=== PATIENT | male | born 1970 | race African-American/Black ===

== ENCOUNTER 2024-10-29 08:51 | Emergency (ER) | payer OTHER ==
[2024-10-29] MEDS ORDERED: ONDANSETRON 4 MG/2 ML VIAL ONE (09:21)
[2024-10-29] MEDS ORDERED: NA CHLORIDE 0.9% 1,000 ML ONE (09:22)
[2024-10-29] MEDS ORDERED: MORPHINE 4 MG/ML SYR ONE (09:22)
[2024-10-29] MEDS ORDERED: FAMOTIDINE 20 MG/2 ML VIAL IV ONE (09:22)
[2024-10-29 09:25] LABS: Absolute Eosinophils 0.3 K/uL (0-0.5); Absolute Monocytes 0.7 K/uL (0.1-1.3); Absolute Neutrophil 2.4 K/uL (1.8-8.0); Basophils % 1.1 % (0-1.3); Eosinophils % 6.5 % (0-4.4); Hematocrit 34.1 % (39.6-49.0); Hemoglobin 11.6 g/dL (13.6-17.9); Lymphocytes % 21.9 % (15.3-44.8); MCH 32.8 pg (27.0-35.0); MCHC 34.1 g/dL (32.0-36.0); MCV 96.3 fL (80-100); MPV 7.7 fL (7.6-11.3); Monocytes % 16.3 % (3.3-12.3); Neutrophils % 54.2 % (41.7-73.7); Nucleated Red Blood Cells % 0.2 % (0-0); Platelets 186 thou/uL (152-406); RBC Red Blood Cell Count 3.54 M/uL (4.33-5.43); Red Cell Distribution Width 15.7 % (12.1-15.2)
[2024-10-29 09:45] LABS: AST/SGOT 28 U/L (15-37); Albumin 3.1 g/dL (3.4-5.0); Albumin/Globulin Ratio 0.5 (1.1-1.8); Alkaline Phosphatase 177 U/L (45-117); Anion Gap 8.5 mEq/L (5.0-15.0); BUN Blood Urea Nitrogen 10 mg/dL (7-18); Bicarbonate 29 mEq/L (21-32); Bilirubin Total 2.6 mg/dL (0.2-1.0); Globulin 5.7 g/dL (2.3-3.5); Glomerular Filtration Rate 68 ml/min (=/>90); Glucose Level 106 mg/dL (74-106); Lipase 32 U/L (13-75); Potassium 3.5 mEq/L (3.5-5.1); Protein, Total 8.8 g/dL (6.4-8.2); Sodium Level 139 mEq/L (136-145)
[2024-10-29 09:46] LABS: ALT/SGPT < 14 U/L (16-61)
--- NOTE | 2024-10-29 09:56 | RAD REPORT ---
EXAM: Right upper quadrant ultrasound. CLINICAL HISTORY: ABD PAIN COMPARISON: None. FINDINGS: Gallbladder: Stones and sludge. Thickened gallbladder wall measuring to 6 mm. Bile ducts: No intrahepatic or extrahepatic biliary dilatation. Common bile duct measures 4 mm. Limited imaging of the liver shows no concerning finding. Small volume of ascites. IMPRESSION: Gallbladder sludge and stones with thickened gallbladder wall could indicate cholecystitis in the cor rect clinical setting. Small volume of ascites.
[2024-10-29] MEDS ORDERED: FUROSEMIDE 20 MG/ 2ML VIAL ONE ×2 (10:24→10:56)
--- NOTE | 2024-10-29 10:41 | RAD REPORT ---
EXAM: CT CHEST, ABDOMEN AND PELVIS WITHOUT CONTRAST CLINICAL INDICATION: ABD PAIN TECHNIQUE: CT chest, abdomen and pelvis was performed without contrast, as per department protocol. A xial, sagittal and coronal reconstructions were obtained. One or more of the following dose reduction techniques were used: Automated exposure control, adjustment of the mA and/or kV according to patient size, and/or iterative reconstruction. Unless otherwise specified, incidental findings do not require dedicated imaging follow-up. Examination is limited by the lack of intravenous contrast material. COMPARISON: No prior exam. FINDINGS: LUNGS: Mild interstitial pulmonary edema likely present throughout the lung alonso. There is signific ant cardiomegaly. PLEURA: Small bilateral pleural effusions. MEDIASTINUM AND LYMPH NODES: No mediastinal mass or fluid collection. Normal size mediastinal, hilar, and axillary lymph nodes. OSSEOUS STRUCTURES AND CHEST WALL: Intact. Sternotomy wires. LIVER: Normal in size and contour. No focal lesion or biliary dilatation. PANCREAS: No mass, ductal dilation, or ирина-pancreatic fluid. SPLEEN: Normal size. No focal lesion. ADRENALS: Normal; no mass. KIDNEYS: Normal size and contour. No hydronephrosis. URINARY BLADDER: Normal contour. GASTROINTESTINAL TRACT: Mild ascites is noted. Fat-containing umbilical hernia is present, small-to-m oderate in size. No bowel obstruction is seen. No abscess present. APPENDIX: Normal appendix. LYMPH NODES: No lymphadenopathy. MUSCULOSKELETAL: Spondylosis is noted L5-S1. OTHER: Moderate atherosclerosis. IMPRESSION: Moderate CHF versus volume overload pattern. Mild ascites.
[2024-10-29 11:18] LABS: PT Prothrombin Time 16.9 SECONDS (10-13.0); Protime INR 1.51
--- NOTE | 2024-10-29 11:29 | RAD REPORT ---
EXAMINATION: ONE VIEW CHEST XR CLINICAL INDICATION: Cough;Abdominal distention TECHNIQUE: Frontal chest projection is submitted. Examination is limited by patient positioning and t echnique. COMPARISON: No prior exam. FINDINGS: Mild bilateral pulmonary edema is suspected. The cardiac silhoutte is severely enlarged in size. No d isplaced fractures identified. Multilead pacer/stimulator device. Sternotomy wires. IMPRESSION: Mild to moderate CHF versus volume overload pattern is suspected.
[2024-10-29] MEDS ORDERED: WARFARIN SODIUM 5 MG TAB ONE (11:40)
[2024-10-29 12:01] LABS: Specific Gravity 1.007 (1.005-1.030); Urine Bilirubin NEGATIVE (Negative); Urine Blood Negative (Negative); Urine Clarity Clear (Clear); Urine Color Colorless (Yellow); Urine Glucose NEGATIVE (Negative); Urine Ketones NEGATIVE (Negative); Urine Microscopic Reflex YN NO UMIC; Urine Nitrite NEGATIVE (Negative); Urine Protein NEGATIVE (Negative); Urine Urobilinogen Normal (Normal)
[2024-10-29 12:19] LABS: Troponin High Sensitivity 36.5 pg/mL (<58.9)
--- NOTE | 2024-10-29 12:23 | ER ---
Nurse's Notes [facility] Name: Jorge Curtis Age: 54 yrs Sex: Male : 1970 Arrival Date: 10/29/2024 Time: 08:51 Bed 16 Private MD: Diagnosis: Abdominal pain, Generalized;Umbilical hernia without obstruction or gangrene-reducable;Chronic combined systolic (congestive) and diastolic (congestive) heart failure;Persistent atrial fibrillation;Abnormal levels of other serum enzymes-SUBTHERAPUTIC DILANTIN LEVEL;Adverse effect of anticoagulant antagonists, vitamin K and other coagulants-SUBTHERAPUTIC INR, MECHANICAL AORTIC VALVE Presentation: 10/29 09:06 Chief complaint: Patient states: Abdominal pain for a few days, "my auntie made me ll1 come". Coronavirus screen: Client denies travel out of the [place] in the last 14 days. At this time, the client does not indicate any symptoms associated with coronavirus-19. Ebola Screen: Patient denies travel to an Ebola-affected area in the 21 days before illness onset. Initial Sepsis Screen: Does the patient meet any 2 criteria? No. Patient's initial sepsis screen is negative. Does the patient have a suspected source of infection? No. Patient's initial sepsis screen is negative. Risk Assessment: Do you want to hurt yourself or someone else? Patient reports no desire to harm self or others. Onset of symptoms was October 26, 2024. 09:06 Method Of Arrival: Ambulatory ll1 09:06 Acuity: LOUISE 3 ll1 Triage Assessment: 09:07 General: Appears uncomfortable, Behavior is calm, cooperative, appropriate for age. ll1 Pain: Complains of pain in abdomen Pain currently is 8 out of 10 on a pain scale. Quality of pain is described as aching, crampy. GI: Reports lower abdominal pain, upper abdominal pain, bloating. Historical: - Allergies: 09:05 No Known Allergies; ll1 - PMHx: 09:05 Hypertensive disorder; Diabetes mellitus; ll1 - PSHx: 09:05 defib; 4 heart surgeries; aortic valve replacement; ll1 - Immunization history:: Adult Immunizations up to date. - Infectious Disease History:: Denies. - Social history:: Smoking status: Patient denies any tobacco usage or history of. - Family history:: not pertinent. Screenin:[address] [facility] ED Fall Risk Assessment (Adult) History of falling in the last 3 months, kj2 including since admission No falls in past 3 months (0 pts) Confusion or Disorientation No (0 pts) Intoxicated or Sedated No (0 pts) Impaired Gait No (0 pts) Mobility Assist Device Used No (0 pt) Altered Elimination No (0 pt) Score/Fall Risk Level 0 - 2 = Low Risk Maintained a safe environment, Hourly rounding (assess needs \\T\\ fall precautionary measures) done. Abuse screen: Denies threats or abuse. Denies injuries from another. Nutritional screening: No deficits noted. Tuberculosis screening: No symptoms or risk factors identified. Assessment: 09:34 Reassessment: pt does not want pain medication at this time , denies pain , states he iw only feels fullness when he stands. 12:00 General: Appears in no apparent distress. Behavior is calm, cooperative. kj2 12:00 Pain: Denies pain. Neuro: Level of Consciousness is awake, alert, obeys commands, kj2 Oriented to person, place, time, situation. Cardiovascular: Patient's skin is warm and dry. Respiratory: Airway is patent Respiratory effort is unlabored. GI: No signs and/or symptoms were reported involving the gastrointestinal system. GI: Bowel sounds present X 4 quads. Abd is non tender X 4 quads. : No signs and/or symptoms were reported regarding the genitourinary system. 12:30 Reassessment: pt and family request to speak with physician prior to discharge/leaving. kj2 12:50 Reassessment: Patient appears in no apparent distress at this time. Patient and/or kj2 family updated on plan of care and expected duration. Pain level reassessed. Patient is alert, oriented x 3, equal unlabored respirations, skin warm/dry/pink. 13:47 Reassessment: Patient appears in no apparent distress at this time. Patient and/or kj2 family updated on plan of care and expected duration. Pain level reassessed. Patient is alert, oriented x 3, equal unlabored respirations, skin warm/dry/pink. Vital Signs: 09:06 Pulse 102; Resp 18; Temp 97.8; Pulse Ox 97% on R/A; Height 5 ft. 4 in. ; Pain 8/10; ll1 09:19 BP 144 / 68; iw 11:24 BP 144 / 95; Pulse 95; Resp 18; Pulse Ox 97% on R/A; ld1 12:49 BP 135 / 96; Pulse 98; Resp 20; Temp 98; Pulse Ox 100% ; kj2 13:47 BP 142 / 88; Pulse 96; Resp 20; Temp 98; Pulse Ox 98% on R/A; kj2 09:06 Pain Scale: Adult ll1 ED Course: 08:54 Patient arrived in ED. al6 08:54 Arm band placed on Patient placed in an exam room, on a stretcher. ll1 08:55 Eliazar Crawford MD is Attending Physician. ailyn 08:59 Liz Turk, ANGUS is Primary Nurse. iw 09:07 Triage completed. ll1 09:15 Initial lab(s) drawn, by me, sent to lab. Inserted saline lock: 20 gauge in right iw forearm, using aseptic technique. Blood collected. Flushed with 10 mL NS. 09:51 Abdomen Limited US In Process Unspecified. EDMS 10:25 Chest Abd Pelvis Wo Con In Process Unspecified. EDMS 11:27 Chest Single View XRAY In Process Unspecified. EDMS 11:49 Dilantin Sent. ld1 12:00 Patient has correct armband on for positive identification. Bed in low position. Call kj2 light in reach. Adult w/ patient. Provided Education on: call light. 12:19 Dhiraj Zhou MD is Referral Physician. ailyn 12:46 No provider procedures requiring assistance completed. IV discontinued, intact, kj2 bleeding controlled, No redness/swelling at site. Pressure dressing applied. Administered Medications: 09:59 Not Given (Duplicate Order): ns 0.9% 1000 ml IV at 1 bolus Per protocol; to be given as ailyn a bolus over 60 minutes 10:42 Not Given (Patient Refused): morphineor iv 4 mg IVP once over 4 mins ld1 11:07 Drug: Furosemide IVP 20 mg IVP once; give over 2 minutes Route: IVP; Site: right ld1 forearm; 11:24 Follow up: Response: No adverse reaction ld1 11:07 Drug: Furosemide IVP 20 mg IVP once; give over 2 minutes Route: IVP; Site: right ld1 forearm; 11:24 Follow up: Response: No adverse reaction ld1 11:08 Drug: Famotidine IVP 20 mg IVP once; dilute with 10 mL 0.9% NaCl; give over 2 minutes ld1 Route: IVP; Site: right forearm; 11:24 Follow up: Response: No adverse reaction ld1 11:08 Drug: Ondansetron IVP 4 mg IVP once; over 2 minutes Route: IVP; Site: right forearm; ld1 11:24 Follow up: Response: No adverse reaction ld1 11:45 Drug: Warfarin PO 5 mg PO once Route: PO; ld1 12:48 Follow up: Response: No adverse reaction kj2 12:42 Drug: Fosphenytoin IVPB 1 grams IVPB once; (mix in 50 to 100mL NS) Route: IVPB; Site: kj2 right forearm; 13:19 Follow up: IV Status: Completed infusion; IV Intake: 100ml kj2 Medication: 12:45 VIS not applicable for this client. kj2 Intake: 13:19 IV: 100ml; Total: 100ml. kj2 Outcome: 12:23 Discharge ordered by MD. robertson 12:46 Discharged to home ambulatory, kj2 12:46 Condition: stable 12:46 Discharge instructions given to patient, family, Instructed on discharge instructions, follow up and referral plans. Demonstrated understanding of instructions, follow-up care, medications, Prescriptions given X 1, 13:48 Patient left the ED. kj2 Signatures: Dispatcher [employer] EDEliazar Carney MD MD cha Williams, Irene, RN Jose Forbes RN RN ll1 Lisseth Marie RN RN ld1 Rukhsana Jeff RN RN kj2 Dejah Amos al6
--- NOTE | 2024-10-29 12:23 | EDPHYS ---
Physician Documentation [facility] Name: Jorge Curtis Age: 54 yrs Sex: Male : 1970 Arrival Date: 10/29/2024 Time: 08:51 Bed 16 Private MD: UZAIR Physician Eliazar Crawford HPI: 10/29 10:13 This 54 yrs old Black Male presents to ER via Ambulatory with complaints of Abdominal ailyn Pain. 10:13 The patient presents with swelling. The complaints affect the right leg and left leg. ailyn Context: The problem was sustained at an unknown site. The patient has shortness of breath with light activity. Duration: The symptoms are continuous, and are unchanged since they started. The patient's shortness of breath is aggravated by exertion, light activity, walking, is alleviated by rest. The patient presents with abdominal pain in the lower abdomen, abdominal distention. Associated signs and symptoms: Pertinent positives: non-productive cough. Treatment prior to arrival includes: no previous treatment. Modifying factors: The symptoms are alleviated by remaining still, the symptoms are aggravated by movement, touching the area, walking. Historical: - Allergies: 09:05 No Known Allergies; ll1 - PMHx: 09:05 Hypertensive disorder; Diabetes mellitus; ll1 - PSHx: 09:05 defib; 4 heart surgeries; aortic valve replacement; ll1 - Immunization history:: Adult Immunizations up to date. - Infectious Disease History:: Denies. - Social history:: Smoking status: Patient denies any tobacco usage or history of. - Family history:: not pertinent. ROS: 10:13 Constitutional: Negative for fever, chills, and weight loss, Eyes: Negative for injury, ailyn pain, redness, and discharge, ENT: Negative for injury, pain, and discharge, Neck: Negative for injury, pain, and swelling, Cardiovascular: Negative for chest pain, palpitations, and edema, Back: Negative for injury and pain, : Negative for injury, bleeding, discharge, and swelling, Skin: Negative for injury, rash, and discoloration, Neuro: Negative for headache, weakness, numbness, tingling, and seizure, Psych: Negative for depression, anxiety, suicide ideation, homicidal ideation, and hallucinations, Allergy/Immunology: Negative for hives, rash, and allergies, Endocrine: Negative for neck swelling, polydipsia, polyuria, polyphagia, and marked weight changes, Hematologic/Lymphatic: Negative for swollen nodes, abnormal bleeding, and unusual bruising, 10:13 Respiratory: Positive for cough, shortness of breath, on exertion. 10:13 Abdomen/GI: Positive for abdominal cramps, abdominal distension, of the umbilical area, 10:13 MS/extremity: Positive for swelling, Exam: 10:16 Constitutional: This is a well developed, well nourished patient who is awake, alert, ailyn and in no acute distress. Head/Face: Normocephalic, atraumatic. Eyes: Pupils equal round and reactive to light, extra-ocular motions intact. Lids and lashes normal. Conjunctiva and sclera are non-icteric and not injected. Cornea within normal limits. Periorbital areas with no swelling, redness, or edema. ENT: Nares patent. No nasal discharge, no septal abnormalities noted. Tympanic membranes are normal and external auditory canals are clear. Oropharynx with no redness, swelling, or masses, exudates, or evidence of obstruction, uvula midline. Mucous membranes moist. Neck: Trachea midline, no thyromegaly or masses palpated, and no cervical lymphadenopathy. Supple, full range of motion without nuchal rigidity, or vertebral point tenderness. No Meningismus. Chest/axilla: Normal chest wall appearance and motion. Nontender with no deformity. No lesions are appreciated. Cardiovascular: Regular rate and rhythm with a normal S1 and S2. No gallops, murmurs, or rubs. Normal PMI, no JVD. No pulse deficits. Respiratory: Lungs have equal breath sounds bilaterally, clear to auscultation and percussion. No rales, rhonchi or wheezes noted. No increased work of breathing, no retractions or nasal flaring. Back: No spinal tenderness. No costovertebral tenderness. Full range of motion. Male : Normal genitalia with no discharge or lesions. Skin: Warm, dry with normal turgor. Normal color with no rashes, no lesions, and no evidence of cellulitis. Neuro: Awake and alert, GCS 15, oriented to person, place, time, and situation. Cranial nerves II-XII grossly intact. Motor strength 5/5 in all extremities. Sensory grossly intact. Cerebellar exam normal. Normal gait. Psych: Awake, alert, with orientation to person, place and time. Behavior, mood, and affect are within normal limits. 10:16 ECG was reviewed by the Attending Physician. 10:16 Abdomen/GI: Inspection: distension, that is mild, that is moderate, obese Bowel sounds: normal, Palpation: mild abdominal tenderness, moderate abdominal tenderness, in the umbilical area, Liver: no appreciated palpable abnormalities, Hernia: not appreciated, 10:16 Musculoskeletal/extremity: ROM: no acute changes, intact in all extremities, full active range of motion, full passive range of motion, Circulation is intact in all extremities. Compartment Syndrome exam of affected extremity: Weight bearing: DVT Exam: no pain, no tenderness, negative Homans' sign noted on exam, no appreciated bluish discoloration, no erythema, no increased warmth, swelling, 10:49 ECG was reviewed by the Attending Physician. [facility] Vital Signs: 09:06 Pulse 102; Resp 18; Temp 97.8; Pulse Ox 97% on R/A; Height 5 ft. 4 in. ; Pain 8/10; ll1 09:19 BP 144 / 68; iw 11:24 BP 144 / 95; Pulse 95; Resp 18; Pulse Ox 97% on R/A; ld1 12:49 BP 135 / 96; Pulse 98; Resp 20; Temp 98; Pulse Ox 100% ; kj2 13:47 BP 142 / 88; Pulse 96; Resp 20; Temp 98; Pulse Ox 98% on R/A; kj2 09:06 Pain Scale: Adult ll1 MDM: 08:55 Medical Screening Exam initiated ailyn 10:18 Differential diagnosis: closed fracture, contusion, Anemia asthma, Bronchitis CHF ailyn exacerbation, pneumonia, Pneumothorax pulmonary edema. Antibiotic administration: Not indicated. Immunization status: Influenza vaccine: within last 5 years. Data reviewed: vital signs, nurses notes, lab test result(s), EKG, radiologic studies, CT scan, plain films, ultrasound. I considered the following discharge prescriptions or medication management in the emergency department Medications were administered in the Emergency Department. See AUG. 10/29 08:56 Order name: CBC with Diff; Complete Time: 09:52 [facility] 10/29 08:56 Order name: CMP; Complete Time: 09:52 [facility] 10/29 08:56 Order name: Lipase; Complete Time: 09:52 [facility] 10/29 10:00 Order name: AMMONIA; Complete Time: 12:16 [facility] 10/29 10:00 Order name: PT-INR; Complete Time: 11:27 [facility] 10/29 10:00 Order name: BNP; Complete Time: 12:24 [facility] 10/29 10:00 Order name: Troponin High Sensitivity; Complete Time: 12:24 [facility] 10/29 10:53 Order name: UA Rfx Grant Cult if indicated 10/29 11:43 Order name: Dilantin; Complete Time: 12:16 [facility] 10/29 08:56 Order name: Abdomen Limited US; Complete Time: 09:58 [facility] 10/29 10:00 Order name: Chest Single View XRAY; Complete Time: 11:43 [facility] 10/29 10:20 Order name: Chest Abd Pelvis Wo Con; Complete Time: 10:51 EDMS 10/29 10:00 Order name: EKG; Complete Time: 10:00 [facility] 10/29 08:56 Order name: IV Saline Lock; Complete Time: 09:18 [facility] 10/29 08:56 Order name: Labs collected and sent; Complete Time: 09:18 [facility] 10/29 10:00 Order name: EKG - Nurse/Tech; Complete Time: 10:42 [facility] 10/29 11:16 Order name: Labs - recollect needed: dark and light green; Complete Time: 11:45 ll1 EC:49 Rate is 98 beats/min. Rhythm is irregularly irregular. QRS Mayo is Normal. [place] interval ailyn is normal. QRS interval is normal. QT interval is normal. No Q waves. T waves are Normal. Clinical impression: Atrial Fibrillation and No evidence of ischemia. Interpreted by me. Reviewed by me. Administered Medications: 09:59 Not Given (Duplicate Order): ns 0.9% 1000 ml IV at 1 bolus Per protocol; to be given as ailyn a bolus over 60 minutes 10:42 Not Given (Patient Refused): morphineor iv 4 mg IVP once over 4 mins ld1 11:07 Drug: Furosemide IVP 20 mg IVP once; give over 2 minutes Route: IVP; Site: right ld1 forearm; 11:24 Follow up: Response: No adverse reaction ld1 11:07 Drug: Furosemide IVP 20 mg IVP once; give over 2 minutes Route: IVP; Site: right ld1 forearm; 11:24 Follow up: Response: No adverse reaction ld1 11:08 Drug: Famotidine IVP 20 mg IVP once; dilute with 10 mL 0.9% NaCl; give over 2 minutes ld1 Route: IVP; Site: right forearm; 11:24 Follow up: Response: No adverse reaction ld1 11:08 Drug: Ondansetron IVP 4 mg IVP once; over 2 minutes Route: IVP; Site: right forearm; ld1 11:24 Follow up: Response: No adverse reaction ld1 11:45 Drug: Warfarin PO 5 mg PO once Route: PO; ld1 12:48 Follow up: Response: No adverse reaction kj2 12:42 Drug: Fosphenytoin IVPB 1 grams IVPB once; (mix in 50 to 100mL NS) Route: IVPB; Site: kj2 right forearm; 13:19 Follow up: IV Status: Completed infusion; IV Intake: 100ml kj2 Disposition Summary: 10/29/24 12:23 Discharge Ordered Notes: Location: Home ailyn Problem: new ailyn Symptoms: have improved ailyn Condition: Stable ailyn Diagnosis - Abdominal pain, Generalized ailyn - Umbilical hernia without obstruction or gangrene - reducable ailyn - Chronic combined systolic (congestive) and diastolic (congestive) heart failure ailyn - Persistent atrial fibrillation ailyn - Abnormal levels of other serum enzymes - SUBTHERAPUTIC DILANTIN LEVEL ailyn - Adverse effect of anticoagulant antagonists, vitamin K and other coagulants - ailyn SUBTHERAPUTIC INR, MECHANICAL AORTIC VALVE Followup: ailyn - With: Private Physician - When: 2 - 3 days - Reason: Recheck today's complaints, Continuance of care, Re-evaluation by your physician Followup: ailyn - With: Dhiraj Zhou MD - When: 2 - 3 days - Reason: Recheck today's complaints, Re-evaluation by your physician Discharge Instructions: - Discharge Summary Sheet ailyn - Abdominal Pain, Adult ailyn - Heart Failure, Diagnosis ailyn - Hernia, Adult ailyn - Abdominal Pain, Adult, [id number] ailyn - Hernia, Adult, [id number] ailyn - Atrial Fibrillation, [id number] ailyn - Warfarin Information ailyn - Umbilical Hernia, Adult ailyn - Vitamin K Foods and Warfarin ailyn Forms: - Medication Reconciliation Form ailyn - Antibiotic Education ailyn - Prescription Opioid Use ailyn - Patient Portal Instructions ailyn - Leadership Thank You Letter ailyn Prescriptions: - Dilantin Kapseal 100 mg Oral Capsule - take 1 capsule ORAL route every 8 hours; 30 capsule; Refills: 0, Product ailyn Selection Permitted Signatures: Dispatcher [employer] EDEliazar Carney MD MD cha Lewis, Lynsay, RN RN ll1 Lisseth Marie, RN RN ld1 Rukhsana Jeff, RN RN kj2 Corrections: (The following items were deleted from the chart) 10:00 10:00 Chest Single View+RAD.RAD.BRZ ordered. EDMS EDMS 10: 10:00 AMMONIA+C.LAB.BRZ ordered. EDMS EDMS 10: 10:00 PROTIME (+INR)+COAG.LAB.BRZ ordered. EDMS EDMS 10: 10:00 PROBNP+C.LAB.BRZ ordered. EDMS EDMS 10: 10:00 Troponin High Sensitivity+C.LAB.BRZ ordered. EDMS EDMS 10:20 08:57 Abdomen Pelvis W Con+CT.RAD.BRZ ordered. EDMS EDMS 10:20 10:20 Chest Abdomen Pelvis Wo Con+CT.RAD.BRZ ordered. EDMS EDMS
[2024-10-29] MEDS ORDERED: FOSPHENYTOIN PE 500 MG/10 ML VIAL ONE (12:29)
[2024-10-29] MEDS ORDERED: NA CHLORIDE 0.9% 100 ML ONE (12:30)
[2024-10-29 15:30] VITALS: TEMP 98
[2024-10-29 15:32] VITALS: BP 142/88; O2SAT 98
--- NOTE | 2024-10-30 12:06 | EKG ---
Test Date: 2024-10-29 Test Time: 10:45:16 Waiter/Waitress Cabin Class: Izzy AYALA MEASUREMENT RESULTS: Intervals: Rate: 98 MA: QRSD: 102 QT: 432 QTc: 551 Stanley: P: MA: QRS: 106 T: 88 INTERPRETIVE STATEMENTS: Atrial fibrillation Rightward axis Low voltage QRS Cannot rule out Anterior infarct, age undetermined Prolonged QT Abnormal ECG Compared to ECG 08/29/2005 05:41:00 Right-axis deviation now present Low QRS voltage now present Myocardial infarct finding now present Prolonged QT interval now present Atrial flutter no longer present T-wave abnormality no longer present Electronically Signed On 10-30-24 12:05:15 CDT by Lei Allen
== END 2024-10-29 13:48 | disposition home or self-care (01) ==
LOC: ER 08:51
DX: K42.9 Umbilical hernia without obstruction or gangrene (principal); I50.42 Chronic combined systolic (congestive) and diastolic (congestive) heart failure; I48.19 Other persistent atrial fibrillation; R89.2 Abnormal level of other drugs, medicaments and biological substances in specimens from other organs, systems and tissues; R79.1 Abnormal coagulation profile; T45.7X5A Adverse effect of anticoagulant antagonists, vitamin K and other coagulants, initial encounter; Z95.2 Presence of prosthetic heart valve; Z95.810 Presence of automatic (implantable) cardiac defibrillator; E11.9 Type 2 diabetes mellitus without complications; I10 Essential (primary) hypertension
CPT/HCPCS: 96365; 93005; 85025; 36415; 82140; 85610; 80185; 81003; 84484; 83690; 80053; 83880; 71250; 74176; 71045; 76705; 96375; 99284; Q2009; J1938 ×2; J2405; J7030